=== PATIENT | male | born 1940 | race Asian ===

== ENCOUNTER 2016-05-11 20:06 | Emergency (ER) | payer SELFPAY ==
[~2016-05-11] VITALS: Ht 160 cm; Wt 59.0 kg
[2016-05-11] MEDS ORDERED: SODIUM CHLORIDE 0.9% 500 ML IV ONE (20:34)
[2016-05-11 21:37] LABS: HEMATOCRIT. 37.9 % (42.0-52.0); HEMOGLOBIN. 12.8 g/dL (14.0-18.0); MEAN CORPUSCULAR HGB CONC 33.7 g/dL (31.0-37.0); MEAN CORPUSCULAR VOLUME 94.8 fL (80.0-94.0); MEAN PLATELET VOLUME 8.6 fl (7.4-10.4); PLATELET 164 x1000/uL (130-400); RED CELL DISTRIBUTION WIDTH 12.4 % (11.6-14.6); WHITE BLOOD COUNT 9.4 x1000/uL (4.5-11.0)
[2016-05-11 21:43] LABS: INR 1.1; PARTIAL THROMBOPLASTIN TIME 24.2 sec (24.0-34.0); PROTHROMBIN TIME 11.6 sec
[2016-05-11 21:46] LABS: DIFFERENTIAL COMMENT 1
[2016-05-11 21:51] LABS: ALANINE AMINOTRANSFERASE 31 IU/L (13-61); ALBUMIN 3.6 g/dL (3.4-5.0); ANION GAP 12; CARBON DIOXIDE 27 mEq/L (21-32); CHLORIDE 106 mEq/L (98-107); INDEX HEMOLYSI 1 (1-3); INDEX ICTERIC 1 (1-4); INDEX LIPEMIC 1 (1-3); LIPASE 190 IU/L (73-393); UREA NITROGEN BLOOD 16 mg/dL (7-21); eGFR > 60 mL/min (>60)
[2016-05-11 21:52] LABS: LACTIC ACID 2.3 mmol/L (0.4-2.0)
[2016-05-11 21:57] LABS: TROPONIN I 0.05 ng/mL (0.00-0.04)
[2016-05-11 22:15] VITALS: BP 100/62
[2016-05-12 04:08] LABS: PLATELET ESTIMATE NORMAL
== END 2016-05-11 23:29 | disposition left against medical advice (07) ==
LOC: ER 20:06
DX: R53.1 Weakness (principal); R42 Dizziness and giddiness; R00.2 Palpitations; I95.9 Hypotension, unspecified; E11.9 Type 2 diabetes mellitus without complications; I49.9 Cardiac arrhythmia, unspecified; I10 Essential (primary) hypertension
CPT/HCPCS: 36415; 71010; 80053; 83605; 83690; 84484; 85025; 85610; 85730; 87040; 93005; 96360; 99285; J7040; Z7610